=== PATIENT | male | born 1985 | race Caucasian/White ===

== ENCOUNTER 2018-05-03 17:09 | Inpatient (IN) | payer BC ==
[~2018-05-03] VITALS: Ht 177.8 cm; Wt 74.8 kg
[2018-05-03 20:06] VITALS: BP 116/70
[2018-05-03] MEDS ORDERED: PROPECIA1 MG PO (21:20)
[2018-05-03] MEDS ORDERED: HYDROmorphone 1mg/ml Carpuject IVP PRN ×2 (21:30)
[2018-05-03] MEDS ORDERED: Norco 5mg/325mg tab ORAL PRN (21:30)
[2018-05-03] MEDS ORDERED: D5 1/2NS w/KCl 20mEq 1,000 ML IV SCH (22:00)
== END 2018-05-03 22:20 | disposition left against medical advice (07) | DRG 392 ==
LOC: 3E 19:28
DX: R10.9 Unspecified abdominal pain (principal); Z53.21 Procedure and treatment not carried out due to patient leaving prior to being seen by health care provider; Z53.29 Procedure and treatment not carried out because of patient's decision for other reasons